=== PATIENT | female | born 1945 | race Caucasian/White ===

== ENCOUNTER → 2021-07-04 10:32 | Outpatient (CLI) | payer MEDICARE, SELFPAY ==
[2021-07-04 11:52] LABS: Blood Urea Nitrogen 16 mg/dl (7-17); Estimated Glomerular Filt Rate 61 ml/min (>60); GFR (African American) 73 ML/MIN (>60)
== END ==
PROVIDERS: PCP Family Medicine; Visit Provider Family Medicine
DX: R42 Dizziness and giddiness (principal); R26.89 Other abnormalities of gait and mobility
CPT/HCPCS: 36415; 82565; 84520; 93225; 93226

== ENCOUNTER → 2021-07-06 13:17 | Outpatient (CLI) | payer MEDICARE, SELFPAY ==
--- NOTE | 2021-07-06 | CA_ITS ---
FINAL REPORT TECHNIQUE: Color Doppler, duplex Doppler and richmond scale sonography of the bilateral neck arterial vasculature was performed. Velocities were measured in the carotid arteries. Stenosis evaluation based on the validated velocity criteria. CLINICAL HISTORY: .dizziness, Hemangioma brain FINDINGS: The peak systolic velocity of the right common carotid artery is 67 cm/s. The peak systolic velocity of the right internal carotid artery is 125 cm/s and end diastolic velocity of 39 cm/s. The ICA/CCA ratio is 1.93. No significant plaque is present. The right external carotid artery is patent. The right vertebral artery is patent with antegrade flow. The peak systolic velocity of the left common carotid artery is 73 cm/s. The peak systolic velocity of the left internal carotid artery is 116 cm/s and end diastolic velocity 41 cm/s. The ICA/CCA ratio is 1.64. No significant plaque is present. The left external carotid artery is patent.The left vertebral artery is patent with antegrade flow. IMPRESSION: No evidence of hemodynamically significant stenosis. Bilateral patent vertebral arteries with antegrade flow. If indicated, CTA or MRA could further evaluate. Reviewed, Interpreted and Dictated by Angelita Clay MD Transcribed by Lauryn Enrique Authenticated by Angelita Clay MD on 07/06/2021 02:55:50 PM [facility]
--- NOTE | 2021-07-06 13:22 | CT_ITS ---
FINAL REPORT TECHNIQUE: Axial images of the head and brain was performed with and without contrast. This study was performed with techniques to keep radiation doses as low as reasonably achievable (ALARA). Individualized dose reduction techniques using automated exposure control or adjustment of mA and/or kV according to the patient's size were employed. CLINICAL HISTORY: IMBALANCE; DIZZINESS. HISTORY OF MENINGOMA OF THE BRAIN FINDINGS: There is a partially calcified extra-axial mass along the left frontal lobe measuring 14 mm. There is very mild enhancement along the periphery of the calcified mass. There is no hydrocephalus. The ventricles are symmetric in size and configuration. There is no extra-axial or intraparenchymal hemorrhage. The posterior fossa is without acute abnormality. The basilar cisterns are preserved. The soft tissues are without acute abnormality. No acute osseous abnormality is identified. IMPRESSION: No acute intracranial abnormality. Extra-axial mass adjacent to the left frontal lobe most consistent with a partially calcified meningioma. Reviewed, Interpreted and Dictated by Angelita Clay MD Transcribed by Lauryn Enrique Authenticated by Angelita Clay MD on 07/06/2021 02:57:[address] [facility]
== END ==
PROVIDERS: PCP Family Medicine; Visit Provider Family Medicine
DX: R42 Dizziness and giddiness (principal); R26.89 Other abnormalities of gait and mobility; Z86.011 Personal history of benign neoplasm of the brain
CPT/HCPCS: 70470; 93880; Q9967

== ENCOUNTER → 2021-08-01 07:18 | Outpatient (CLI) | payer SELFPAY ==
--- NOTE | 2021-08-01 07:19 | CT_ITS ---
FINAL REPORT CLINICAL HISTORY: . palpitations, SVT FINDINGS: CT CORONARY CALCIUM SCORE W/O TECHNIQUE: Thin-section axial images were obtained through the heart and coronary arteries per CT coronary calcium score protocol. This study was performed with techniques to keep radiation doses as low as reasonably achievable (ALARA). Individualized dose reduction techniques using automated exposure control or adjustment of mA and/or kV according to the patient's size were employed. FINDINGS: On the axial images, there is no calcification identified. This gives a coronary artery calcium score of 0 based on the Agatston scale. This coronary artery calcium score places the patient within the 0 percentile based on age and gender. The heart size is normal. There is no pleural or pericardial effusion. Limited evaluation of the lungs reveal a partially imaged nodule in the right upper lobe measuring 12 mm. There is a peripherally calcified mass in the posterior spleen measuring 20 mm that may represent a chronic hematoma. IMPRESSION: Calcium score of 0. Partially imaged 12 mm nodule right upper lobe. Recommend dedicated chest CT and/or PET-CT. Reviewed, Interpreted and Dictated by Edin Daugherty III, MD Transcribed by Jenny Salazar Authenticated and [facility]
== END ==
PROVIDERS: PCP Family Medicine; Visit Provider Internal Medicine Cardiovascular Disease
DX: Z13.6 Encounter for screening for cardiovascular disorders (principal)
CPT/HCPCS: 75571

== ENCOUNTER → 2021-08-01 07:42 | Outpatient (CLI) | payer MEDICARE, SELFPAY ==
--- NOTE | 2021-08-01 07:43 | CA_ITS ---
APPROVED REPORT EXAM: Comprehensive 2D, Doppler, and color-flow Echocardiogram Claim Trainee: Sarah Andrade, BERTIN, RVS Ht: 5 ft 6 in Wt: 110lbs BSA: 1.55 BP: 141/77 mmHg Rhythm: irregular Indications: Murmurs, palpitations, HTN, Ex-smoker, SVT, Abn holter 2D Dimensions LVDd 4.10 cm F: 3.9 - 5.3 LVEF (Visual) 50.10 % LVDs 3.07 cm F: 2.2 - 3.5 LA Volume 42.40 mL Aortic Root 2.95 cm F: 2.7 - 3.3 LA Volume Index 27.077484 mL/m2 (M/F) 16-34 Left Atrium 3.08 cm F: 2.7 - 3.8 LVOT 1.81 cm (M/F) 1.5-2.5 M-Mode Dimensions RVDd 2.84 cm (0.9-2.6) LA Diam 4.30 cm (1.9-4.0) LVDd 4.52 cm (3.5-5.7) Ao Diam 3.05 cm (2.0-3.7) LVDs 3.40 cm (3.5-5.7) IVSd 0.67 cm (0.6-1.1) PWd 0.67 cm (0.6-1.1) EF (Teich) 49.30% EPSs 0.22 cm FS 24.80% EDV (Teich) 93.40 mL TAPSE 2.09 (<1.7) ESV (Teich) 47.40 mL LV Diastology E Decel Time 143.00 (160-240 msec) E/A Ratio 1.06 MED E' 8.80 (< 7 cm/sec) MED A' 12.80 cm/s E'/MED E' Ratio 11.05 (>14) LAT E' 8.90 (<10 cm/sec) LAT A' 9.50 cm/s E/LAT E' Ratio 10.92 (>14) Aortic Valve LVOT Max 106.00 (70-110 cm/s) LVOT VTI 26.93 cm AoV Peak Heri. 153.00 (50-130 cm/s) AI PHT 676.00 ms AO Peak GR. 9.40 mmHg AO Mean GR. 4.80 (<5 mmHg) AO VTI 36.70 (18-25 cm) MADI (VTI) 1.89 (2.5-4.5 cm2) Mitral Valve MV A Velocity 91.00 (40-130 cm/s) E/A Ratio 1.06 MV Decel. Time 143.00 (160-240 ms) MV Mean Gr. 1.80 (<2mmHg) MV PHT 43.00 ms Pulmonary Valve PV Peak Velocity 59.00 (50-150 cm/s) Tricuspid Valve TR P. Velocity 270.00 cm/s RAP Estimate 10.00 mmHg RVSP 39.10 mmHg Left Ventricle Left atrium is mildly enlarged, left ventricle is normal size, mild concentric left ventricular hypertrophy, estimated ejection fraction 55% with no regional wall motion abnormality, grade 1 diastolic dysfunction seen without tissue Doppler evidence of raise left atrial pressure. Right Ventricle Right atrium and right ventricle are mildly enlarged with normal contractility. Aortic Valve Aortic valve is thickened and calcified without aortic stenosis, there is mild aortic insufficiency. Mitral Valve Mitral valve grossly normal, there is mild mitral regurgitation. Tricuspid Valve Tricuspid valve grossly normal, there is mild tricuspid regurgitation, calculated right ventricular systolic pressure 39 mmHg. Pulmonic Valve Pulmonic valve is poorly visualized. Great Vessels Aortic root is normal size. Inferior vena cava is mildly dilated with normal inspiratory collapse. Pericardium No significant pericardial effusion noted. Conclusion 1. Mild biatrial enlargement, normal left ventricular size, mild concentric left ventricle hypertrophy, estimated ejection fraction 55% with no regional wall motion abnormality, grade 1 diastolic dysfunction seen without tissue Doppler evidence of raise left atrial pressure. 2. Mildly enlarged right ventricle with normal contractility. 3. Mild aortic, mild mitral and tricuspid regurgitation, calculated right ventricular systolic pressure 39 mmHg. 4. No significant pericardial effusion. 5. Inferior vena cava is mildly dilated with normal inspiratory collapse. Electronically signed by : Doug Condon MD 08/01/2021 19:50:57
== END ==
PROVIDERS: PCP Family Medicine; Visit Provider Internal Medicine Cardiovascular Disease
DX: I47.1 Supraventricular tachycardia (principal); I49.1 Atrial premature depolarization; I49.3 Ventricular premature depolarization; R00.2 Palpitations; R94.31 Abnormal electrocardiogram [ECG] [EKG]
CPT/HCPCS: 93306

== ENCOUNTER → 2021-08-07 12:35 | Outpatient (CLI) | payer MEDICARE, SELFPAY ==
--- NOTE | 2021-08-07 12:37 | CT_ITS ---
FINAL REPORT TECHNIQUE: Axial imaging of the chest was obtained without contrast. Reformatted images were also obtained and reviewed.This study was performed with techniques to keep radiation doses as low as reasonably achievable, (ALARA). Individualized dose reduction technique using automated exposure control or adjustment of mA and/or kV according to the patient's size were employed. CLINICAL HISTORY: ABN PULMONARY FINDING, PULMONARY NODULE COMPARISON: 08/01/2021 FINDINGS: There is no axillary adenopathy. There is no hilar or mediastinal mass or adenopathy. Heart size is normal. There is no pericardial or pleural effusion. There is an 11 mm irregular soft tissue nodule in the posterior right upper lobe, adjacent to the major fissure which may represent scar or neoplasm. There is mild bibasilar atelectasis. Limiting imaging of the upper abdomen demonstrates a peripherally calcified mass in the posterior spleen which may represent calcified hematoma, unchanged from prior exam. IMPRESSION: 11 mm, irregular soft tissue nodule in the posterior right upper lobe which may represent scarring or neoplasm. Recommend PET-CT for further evaluation. Reviewed, Interpreted and Dictated by Edin Daugherty III, MD Transcribed by Ilene Dowling Authenticated and [facility]
--- NOTE | 2021-10-04 12:48 | PC.NURSE ---
Talked with Nikki today about a HST and she refused at this time. I explained that if she changes her decision to give us a call.
== END ==
PROVIDERS: PCP Family Medicine; Visit Provider Family Medicine
DX: R09.89 Other specified symptoms and signs involving the circulatory and respiratory systems (principal); R91.1 Solitary pulmonary nodule
CPT/HCPCS: 71250

== ENCOUNTER → 2021-11-02 12:47 | Outpatient (CLI) | payer MEDICARE, SELFPAY ==
--- NOTE | 2021-11-02 12:47 | CT_ITS ---
FINAL REPORT TECHNIQUE: Axial images were obtained through the chest without contrast. This study was performed with techniques to keep radiation doses as low as reasonably achievable (ALARA). Individualized dose reduction techniques using automated exposure control or adjustment of mA and/or kV according to the patient's size were employed. CLINICAL HISTORY: Lung nodule COMPARISON: 08/07/2021 FINDINGS: The previously noted density in the right upper lobe of the lung is no longer seen, presumably postinflammatory. The heart size is normal. There is no pericardial or pleural effusion. Limited images of the upper abdomen reveal a peripherally calcified structure on the posterior margin of the spleen which may be related to sequela of old small splenic hematoma. IMPRESSION: Resolution of the previous irregular density in the right upper lobe. Reviewed, Interpreted and Dictated by Tanvir Mccain MD Transcribed by Lauryn Enrique Authenticated and [facility]
== END ==
PROVIDERS: PCP Family Medicine; Visit Provider Internal Medicine Pulmonary Disease
DX: R91.1 Solitary pulmonary nodule (principal)
CPT/HCPCS: 71250